=== PATIENT | female | born 1960 | race Caucasian/White ===

== ENCOUNTER 2024-01-26 23:36 | Inpatient (IN) | payer OTHER, SELFPAY ==
--- NOTE | ~2024-01-26 | US_ITS ---
EXAMINATION: US retroperitoneal duplex ltd DATE: 01/27/2024 17:10 INDICATION: Hypertension. TECHNIQUE: Multiple grayscale, color Doppler, and pulsed Doppler images of the kidneys and renal talat georgette were obtained. COMPARISON: None. FINDINGS: The aorta peak systolic velocity is 93 cm/s. Peak systolic velocities are less than 180 cm/s in both renal arteries. IMPRESSION: 1. No Doppler evidence of renal artery stenosis. Reviewed, dictated and finalized at location A.
--- NOTE | 2024-01-26 19:32 | ADMGEN ---
This patient, Katlin Tavera, was admitted to IMU Room 200-01. Patient/family oriented to hospital policies and general routines including ID bracelet, bed and alarms, visiting hours, pain management, procedures, bathroom and other care routines, personal items, smoking policy, room service/diet, and visiting hours. Information on how to activate the Rapid Response Team has been discussed. Patient/Family are encouraged to report perceived risks to care and to ask questions if they do not understand what they are told or what they should do.
[2024-01-26 19:34] VITALS: PULSE 81
[2024-01-26 19:36] VITALS: BMI 23.8
[2024-01-26 19:59] VITALS: BP 161/76; PULSE 76; RESP 16; TEMP 36.2; O2SAT 99
[2024-01-26 20:00] VITALS: PULSE 78; O2SAT 99
--- NOTE | 2024-01-26 20:11 | PM.IMHP ---
H&P: HPI History of Present Illness Date/Time: 01/26/24 20:11 Chief Complaint: hypertension Narrative: This is a 63-year-old female with past medical history significant for recently diagnosed hypertension came as a direct admission from outside facility she presented there after a home blood pressure reading was systolic blood pressure of 230. Patient denies any lightheadedness, dizziness, syncope or near syncope, no headaches no blurry vision no shortness of breath no chest pain no PND no orthopnea no abdominal pain no nausea no vomiting no leg swelling no pedal swelling no ankle swelling. [facility] SHE WAS FOUND TO HAVE ELEVATED BLOOD PRESSURE AND WAS TOLD TO CONTINUE MONITORING AT HOME. PATIENT IS BEEN ADMITTED FOR FURTHER EVALUATION MANAGEMENT AND TREATMENT. Review of Systems Review of Systems: HIGH BLOOD PRESSURE ON HOME READING Constitutional: Constitutional: Denies chills, Denies fatigue, Denies fever(s), Denies frequent falls, Denies headache(s), Denies malaise, Denies night sweats and Denies poor appetite Eyes: Eyes: Denies change in vision ENT: Denies dysphagia, Denies vertigo, Denies dizziness and Denies odynophagia Cardiovascular: Cardiovascular: Denies chest pain, Denies syncope, Denies radiating jaw, neck or arm pain and Denies palpitations Respiratory: Respiratory: Denies chest congestion, Denies cough, Denies dyspnea and Denies wheezing Gastrointestinal: Gastrointestinal: Denies abdominal pain, Denies dyspepsia, Denies heartburn, Denies nausea and Denies vomiting Genitourinary: Genitourinary: Denies dysuria Musculoskeletal: Musculoskeletal: Denies myalgias Integumentary/Breasts: Skin/Breast: Denies rash Neurologic: Denies vertigo, Denies dizziness, Denies focal weakness and Denies Sensory deficit (Neuro) Psychiatric: Psychiatric: Reports no additional psychiatric complaints and Reports as per HPI Endocrine: Endocrine: Denies cold intolerance, Denies heat intolerance, Denies polyphagia, Denies polydipsia and Denies polyuria Hematologic/Lymphatic: Hematologic/Lymphatic: Reports no additional hematologic/lymphatic complaints and Reports as per HPI Allergic/Immunologic: Allergic/Immunologic: Reports no additional allergic/immunologic complaints and Reports as per HPI [facility] Family History Family History (Updated 01/26/24 @ 19:44 by Manjula Pablo RN) Sibling Pacemaker Sibling Cerebrovascular accident Social History Social History Smoking status: Never smoker Second hand tobacco smoke exposure: No Alcohol intake: never Substance use: never Do You Feel Safe in your Home?: Yes Lack of Transportation: No Lack of Food: Never True Current Housing: I Have Housing Concerned About Future Housing: No Difficulty Paying Gas/Electric Bills: No Difficulty Paying for Meds: No Currently Unemployed: No Education: Decline to Answer Difficulty w/ Childcare or Family Care: No Spiritual care concerns: No Meds Home Medications and Allergies Home Medications Medication Instructions Recorded Confirmed Type acetaminophen 500 mg tablet 1,000 mg PO Q6H PRN Pain 01/26/24 01/26/24 History clindamycin HCl 300 mg capsule 300 mg PO QID 01/26/24 01/26/24 History olmesartan 20 mg tablet 20 mg PO DAILY 01/26/24 01/26/24 History Allergies Allergy/AdvReac Type Severity Reaction Status Date / Time Penicillins Allergy Unknown Verified 01/26/24 19:48 Vital Signs Vital Signs - 24 hr 01/26/24 19:59 01/26/24 20:00 01/26/24 20:00 Temperature 97.2 F L Pulse Rate 76 78 Respiratory Rate 16 Blood Pressure 161/76 H Pulse Oximetry 99 99 Oxygen Delivery Room Air Exam Narrative: PATIENT IS LAYING IN BED Const: General: comfortable, no acute distress, well developed, alert, awake and average body habitus Nutritional Appearance: average body habitus Orientation/consciousness: patient oriented x3 Other: WELL-
[2024-01-26 22:00] VITALS: PULSE 84
--- NOTE | 2024-01-26 23:38 | ECG_ITS ---
Test Date: 2024-01-27 10:03:47 Measurements Intervals [place] Rate: 80 P: 9 VA: 161 QRS: -19 QRSD: 97 T: 40 QT: 400 QTc: 464 Interpretive Statements SINUS RHYTHM MINIMAL VOLTAGE CRITERIA FOR LVH, CONSIDER NORMAL VARIANT [MEETS CRITERIA IN ONE OF: R(aVL), S(V1), R(V5), R(V5/V6)+S(V1)] SEPTAL MYOCARDIAL INFARCTION [40+ ms Q WAVE IN V1/V2], PROBABLY OLD WARNING: DATA QUALITY MAY AFFECT INTERPRETATION No previous ECG available for comparison Electronically Signed On 01-27-2024 13:37:16 CDT by Marysol Bean M.D.
[2024-01-26 23:44] VITALS: BP 163/75; PULSE 85; RESP 15; TEMP 36.1; O2SAT 98
[2024-01-27] VITALS (13 sets, daily range): BP systolic 164–206; BP diastolic 72–88; PULSE 75–110; RESP 15–20; TEMP 36.1–36.8; O2SAT 97–99
--- NOTE | 2024-01-27 | ECHO_ITS ---
Patient Info Name: Katlin Tavera Age: 63 years : 1960 Gender: Female Ht: 63 in Wt: 134 lbs BSA: 1.65 m2 HR: 85 bpm BP: 168 / 72 mmHg Heart Rhythm: Sinus Rhythm Technical Quality: Fair Exam Date: 01/27/2024 9:23 AM Exam Location: Echo Lab Patient Status: Outpatient Admit Date: 01/26/2024 Staff Ordering Physician: Kash Quintero MD Commercial Insulator: Naga Marquez RDCS Attending Provider: Mahamed Miranda MD Referring Physician: Leon HOWE; Exam Type: CA echo doppler color flow Study Info Indications I11.0 - Hypertensive heart disease with heart failure Complete two-dimensional, color flow and Doppler transthoracic echocardiogram is performed. Summary 1. Left ventricular chamber dimension is normal. 2. Left ventricular systolic function is at lower limits of normal, estimated at 50-55%. 3. There is moderate concentric increased left ventricular wall thickness. 4. The left ventricular diastolic function is grade I diastolic dysfunction. 5. Right ventricular systolic function is normal. 6. Left atrial chamber dimension is moderately enlarged. 7. No significant valvular disease. Left Ventricle Left ventricular chamber dimension is normal. Left ventricular systolic function is at lower limits of normal, estimated at 50-55%. There is moderate concentric increased left ventricular wall thickness. The left ventricular diastolic function is grade I diastolic dysfunction. Right Ventricle Right ventricular chamber dimension is normal. Right ventricular systolic function is normal. Left Atria Left atrial chamber dimension is moderately enlarged. Right Atria Right atrial chamber dimension is normal. Atrial Septum Intact interatrial septum visualized by color flow imaging. Aortic Valve The aortic valve is trileaflet. There is mild aortic valve sclerosis. There is no aortic valve stenosis. There is no aortic valve regurgitation. Pulmonic Valve The pulmonic valve is not well visualized. There is no pulmonic regurgitation. Mitral Valve There is trace mitral valve regurgitation. Tricuspid Valve There is trace tricuspid valve regurgitation. Pericardium/Pleural There is no pericardial effusion. Inferior Vena Cava Normal inferior vena cava with >50% collapse upon inspiration consistent with normal right atrial pressure, 3 mmHg. Aorta The aortic root size at the sinus of Valsalva is normal. Left Ventricular Outflow Tract Name Value Normal LVOT 2D LVOT Diameter 2.0 cm LVOT Doppler LVOT Peak Gradient 6 mmHg LVOT Mean Gradient 3 mmHg LVOT VTI 23 cm LVOT VTI/AV VTI Ratio 0.8 LVOT Stroke Volume 73 ml LVOT CO 5.9 l/min LVOT CI 3.5 l/min/m2 Pulmonic Valve Name Value Normal RVOT Doppler RVOT Peak Gradient
[2024-01-27 00:27] LABS: Appearance Urine Clear (Clear); Bacteria Urine None Seen /hpf; Bilirubin Urine Negative (Negative); Blood Urine 2+ (Negative); Color Urine Yellow (Yellow); Glucose Urine UA 2+ mg/dL (Negative); Ketones Urine Negative (Negative); Leukocyte Esterase Ur Negative LEU/UL (Negative); Nitrate Urine Negative (Negative); Protein Urine 3+ mg/dL (Negative); RBC Urine 21-50 /hpf (0-2); Specific Grav Ur 1.019 (1.001-1.035); Squamous Epithelial Cell Urine Occasional /hpf (Few); Urobilinogen Urine 0.2 mg/dL (<2.0); WBC Urine 0-5 /hpf (0-3); pH Urine 5.5 (5.0-9.0)
[2024-01-27 01:07] LABS: Add Urine Microscopic? YES
[2024-01-27 04:33] LABS: Basophils Percent Auto 0.2 % (0.2-1.2); Eosinophils Absolute Auto 0.1 K/mm3 (0-0.3); Eosinophils Percent Auto 0.8 % (0-4.4); Hematocrit 36.1 % (37.0-47.0); Hemoglobin 11.8 g/dL (12.0-15.0); Immature Granulocyte Absolute 0.02 K/mm3 (0.00-0.031); Immature Granulocyte Percent A 0.2 % (0-0.5); Lymphocytes Absolute Auto 2.25 K/mm3 (0.9-3.2); Lymphocytes Percent Auto 25.2 % (18.3-44.2); Mean Corpuscular HGB Conc 32.7 g/dl (32-36); Mean Corpuscular Hemoglobin 27.2 pg (26-34); Mean Corpuscular Volume 83.2 fl (80-100); Mean Platelet Volume 10.9 fl (7.4-10.4); Monocytes Percent Auto 10.9 % (2.6-8.5); Neutrophils Absolute Auto 5.6 K/mm3 (1.3-6.7); Neutrophils Percent Auto 62.7 % (45.5-73.1); Platelet Count Result 597 k/mm3 (150-375); Red Blood Count 4.34 M/mm3 (4.2-5.4); Red Cell Distribution Width 14.7 % (11.5-14.5); White Blood Count 8.9 K/mm3 (4.5-10.0)
[2024-01-27 04:50] LABS: Anion Gap 7 mmol/L (4-12); Blood Urea Nitrogen 20 mg/dL (7-17); Calcium 9.1 mg/dL (8.4-10.2); Carbon Dioxide 30 mmol/L (22-30); Chloride 98 mmol/L (98-107); Estimated CRCL calculation 52 ml/min; Estimated Glomerular Filt Rate > 60; Glucose 239 mg/dL (65-110); Magnesium 2.1 mg/dL (1.6-2.3); Phosphorus 4.2 mg/dL (2.5-4.5); Sodium 135 mmol/L (137-145)
[2024-01-27] MEDS: OLMESARTAN MEDOXOMIL 20 MG TABLET PO (08:13)
[2024-01-27] MEDS: CLINDAMYCIN HCL 150 MG CAP 300 MG PO ×2 (08:13→12:02)
--- NOTE | 2024-01-27 10:31 | PM.IMPN ---
Progress Note: A&P Assessment and Plan (1) Asymptomatic hypertensive urgency: Code(s): I16.0 - Hypertensive urgency Status: Acute Plan This is a 63-year-old female with past medical history significant for recently diagnosed hypertension came as a direct admission from outside facility she presented there after a home blood pressure reading was systolic blood pressure of 230. Patient denies any lightheadedness, dizziness, syncope or near syncope, no headaches no blurry vision no shortness of breath no chest pain no PND no orthopnea no abdominal pain no nausea no vomiting no leg swelling no pedal swelling no ankle swelling. Asymptomatic hypertensive urgency: Code(s): I16.0 - Hypertensive urgency Status: Acute Assessment and Plan: Patient received olmesartan 20 mg daily p.o. Blood pressure is not controlled Add hydrochlorothiazide 25 mg daily p.o., amlodipine 10 mg daily p.o. Hydralazine IV p.r.n. 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 Patient denies headache, vision change, chest pain, shortness of breath, abdomen pain, nausea vomiting. Patient has a chronic ulcer of right lower limb treated, and patient was prescribed clindamycin on Wednesday per [facility]. Patient noticed active drainage today, have worsening swelling Exam Narrative: GENERAL: Pleasant, in no acute distress. Well-nourished. - EYES: EOMI. Anicteric. - HENT: Moist mucous membranes. - LUNGS: Clear to auscultation bilaterally, no wheezing, rhonchi, or rales. - CARDIOVASCULAR: Regular rate and rhythm. No murmur. No JVD. - ABDOMEN: Soft, non-tender and non-distended. No palpable masses. - EXTREMITIES: No edema. Peripheral pulses 2+. Non-tender. - NEUROLOGIC: No focal neurological deficits. CN II-XII grossly intact. - PSYCHIATRIC: Awake, Alert and oriented x 3. Appropriate mood and affect. - SKIN: Multiple ulcer of right lower extremity, erythema tender swelling of the skin around the ulcers - LYMPH: No cervical lymphadenopathy. Objective Data Vital Signs Vital Signs: Vital Signs - 24 hr 01/26/24 19:59 01/26/24 20:00 01/26/24 20:00 Temperature 97.2 F L Pulse Rate 76 78 Respiratory Rate 16 Blood Pressure 161/76 H Pulse Oximetry 99 99 Oxygen Delivery Room Air 01/26/24 19:34 01/26/24 23:44 01/26/24 22:00 Temperature 97 F L Pulse Rate 81 85 84 Respiratory Rate 15 Blood Pressure 163/75 H Pulse Oximetry 98 Oxygen Delivery 01/27/24 00:00 01/27/24 00:00 01/27/24 04:00 Temperature 97.6 F Pulse Rate 85 77 Respiratory Rate 15 Blood Pressure 168/72 H Pulse Oximetry 98 Oxygen Delivery Room Air 01/27/24 04:00 01/27/24 04:00 01/27/24 02:00 Temperature Pulse Rate 75 77 Respiratory Rate Blood Pressure Pulse Oximetry Oxygen Delivery Room Air 01/27/24 07:39 01/27/24 08:00 01/27/24 08:00 Temperature 97.1 F L Pulse Rate 85 82 Respiratory Rate 20 Blood Pressure 192/88 H Pulse Oximetry 99 Oxygen Delivery Room Air Intake/Output Intake/Output: Intake & Output 01/24/24 01/25/24 01/26/24 01/27/24 23:59 23:59 23:59 23:59 Intake T
[2024-01-27 11:15] LABS: Immature Reticulocyte Fraction 9.3 % (3.0-15.9); Reticulocyte Hemoglobin Conten 31.9 pg (28.2-36.6); Reticulocyte Percent 1.69 % (0.7-4.3); Reticulocytes Absolute 0.08 10^6/uL (0.02-0.10)
--- NOTE | 2024-01-27 11:49 | PM.CNGS ---
Assessment and Plan Assessment and plan (1) Abscess of right leg: Code(s): L02.415 - Cutaneous abscess of right lower limb Status: Acute Assessment and Plan: The patient is here for hypertensive urgency but also presents with a right lower leg abscess. She had repetitive trauma to this area about a month ago and has since developed a soft tissue infection. She has been on oral antibiotics for about 1.5 weeks as an outpatient through an urgent care. It appears she has developed two fluctuant necrotic wounds over the abscess that definitely connect. I discussed the case with Dr. Andrade. We would recommend proceeding with bedside incision and drainage of right lower leg abscess with local anesthetic today. Description of the procedure, risks, benefits, alternatives, and expected outcomes/wound care were discussed with the patient in detail. Will consult the wound care nurses for possible wound vac therapy as she will likely have a large open wound following the I&D. She is currently on oral clindamycin for antibiotics. (2) Asymptomatic hypertensive urgency: Code(s): I16.0 - Hypertensive urgency Status: Acute Assessment and Plan: Patient with untreated hypertension for the past 8 years and presented to an [facility] facility with hypertensive urgency. Management per primary service. (3) Hyperglycemia: Code(s): R73.9 - Hyperglycemia, unspecified Status: Acute Assessment and Plan: Glucose 239 on admission. Suspicion for undiagnosed diabetes. Hgb A1C pending. This is likely contributing to her skin infection. (4) Anemia: Code(s): D64.9 - Anemia, unspecified Status: Acute Assessment and Plan: Hgb 11.9 on admission and platelets almost 600,000. Hematology was consulted by primary service. Plan I have discussed the patient's case and plan of care with Dr. Andrade. Thank you for allowing us to see the patient in consultation and we will continue to follow along with you. History of Present Illness Consult details Consult date: 01/27/24 Reason for consult: other (Right leg tunneling wound) Requesting physician: Mahamed Miranda MD Narrative: This is a 63-year-old female who we have been asked to see in surgical consultation for a right leg tunneling wound. She was directly admitted to [facility] yesterday from [place] ED for hypertensive crisis. She reports a history of hypertension and was previously on oral medication through primary care provider, but fell out of follow-up due to job changes and lack of insurance. Therefore, she has not been seen by a primary care physician in 8 years and has been off of her medications since. She has been dealing with a right lower leg skin infection for the past 2 weeks and was seen in urgent care who prescribed her antihypertensives and instructed her to take her blood pressure at home. She was taking her blood pressure at home yesterday and her systolic blood pressure was 230, therefore she went to [facility] for evaluation. She has been asymptomatic and denies any headaches, lightheadedness, vision changes, or any other complaints at this time. Her blood pressure this morning is 192/88. She was found to have a right lower extremity wound and our service has been consulted. In regards to the wound, she reports hitting her leg on a wheelchair that she has been getting in and out of her vehicle recently for her mother. The wheelchair continued to hit her lower lateral right leg and this area became sore. She noticed a lump in this area that looked bruised initially. Over a week and a half ago, she began to notice some redness and tenderness in this area, which prompted her to go to an urgent care. They started her on an oral antibiotic and recommended follow-up. She continued to have redness, although slightly improved, and they switched her antibiotic to clindamycin. She has been taking this medication and there is some improvement in th
[2024-01-27 11:58] LABS: Glucose Point of Care 314 mg/dl (65-105)
[2024-01-27] MEDS: amLODIPine BESYLATE 5 MG TABLET 10 MG PO (12:02)
[2024-01-27] MEDS: ACIDOPHILUS/BULGARICUS CHEWABLE TABLET 1 TABLET PO ×3 (12:02→21:10)
[2024-01-27] MEDS: hydroCHLOROthiazide 25 MG TABLET PO (12:02)
[2024-01-27] MEDS: INSULIN ASPART (*BKC) 100 UNITS/ML SUB-Q ×2 (12:03→21:07)
[2024-01-27 12:04] LABS: Iron 100 ug/dL (37-170)
[2024-01-27 12:14] LABS: Percent Iron Saturation 38 % (20-50)
[2024-01-27 12:20] LABS: Hemoglobin A1C 11.2 % (<5.7)
--- NOTE | 2024-01-27 14:37 | P.OP_ITS ---
Procedure Note - Detailed Date of Procedure 01/27/24 Pre-op Diagnosis Right lower lateral leg abscess Post-op Diagnosis Same Procedure Performed Incision and drainage right lower leg abscess, excisional debridement necrotic right lower leg wound including skin and subcutaneous tissue measuring 4 cm x 2 cm Surgeon Christina Curry, LINEN FOLDER Steersman Georg[place], [employer] team member Anesthesia Local (1% lidocaine with epinephrine) Indications This is a 63 year old woman who was directly admitted from [facility] to [place] for hypertensive urgency and was also found to have a right lower leg abscess. Decision was made to proceed with incision and drainage right lower leg abscess. Findings Right lower lateral leg abscess with two small necrotic wounds that connected over the fluctuant area of the abscess. Description of Procedure The patient was placed in the left lateral position in her hospital bed with the right leg propped up on a folded blanket and drapes laid beneath her leg. The site of the abscess for required I&D was identified. Following this, the area was prepped with iodine and draped in usual sterile fashion. Then, local anesthetic was infiltrated over the abscess formation and in the area of the skin bridge between the two wounds. After allowing the local anesthetic to work, I used a #15 blade scalpel for sharp debridement of the soft yellow necrotic skin over the more proximal wound overlying the abscess. I carried down debridement through skin and into subcutaneous tissue. Immediate flow of purulent drainage was noted. I then moved to the more distal wound and again sharply debrided the soft necrotic tissue from this wound that extended through the skin and into subcutaneous tissue. I then used forceps to probe the proximal wound, which entered into the abscess cavity and connected to the more distal open wound. I then used the scalpel to make a direct incision over the forceps to open up the skin bridge that was between the two open wounds. This allowed the abscess cavity to be opened and adequately drained. I then probed the abscess cavity to break up all loculations and irrigated the wound with normal saline. The wound and area of debridement was measured at 4 cm x 2 cm x 2 cm. The cavity does track 3 cm cephalad at the 12 o'clock position. The abscess involves the skin and subcutaneous tissue, and the base of the wound appears to extend to fascia. The abscess cavity was inspected and no residual purulent drainage or any bleeding noted. I then applied a wet to dry dressing until the wound care nurse is able to come back to apply a wound vac. The patient tolerated the procedure well. Estimated Blood Loss 0 Drains No Packing Yes (saline soaked gauze for wet to dry dressing) Complications No immediate complications Condition Stable Disposition No change
[2024-01-27] MEDS: LIDO 1%/EPINEPHRINE 1:100,000 20 ML VIAL 5 ML INFILTRATE (14:52)
[2024-01-27] MEDS: ceFAZolin 2 GM/D5W 50 ML 2 GM/50 ML BAG IVPB ×2 (16:28→23:30)
[2024-01-27] MEDS: VANCOMYCIN 1,000 MG/NS 250 ML 1,000 MG/250 ML BAG 250 MG IVPB (16:35)
[2024-01-27 16:37] LABS: Glucose Point of Care 151 mg/dl (65-105)
[2024-01-27 20:08] LABS: Glucose Point of Care 251 mg/dl (65-105)
--- NOTE | 2024-01-27 21:28 | PC.NURSE ---
This patient is being transferred to [facility] via wheelchair. Report was called to Jami SANFORD. All belongings sent with patient, and she is in stable condition.
[2024-01-28] VITALS (10 sets, daily range): BP systolic 151–189; BP diastolic 69–91; PULSE 72–101; RESP 16–20; TEMP 36.2–36.7; O2SAT 98–99
[2024-01-28 04:42] LABS: Estimated CRCL calculation 52 ml/min; Estimated Glomerular Filt Rate > 60
[2024-01-28 05:57] LABS: CRP 0.6 mg/dL (<1.0)
[2024-01-28 06:01] LABS: Basophils Percent Auto 0.2 % (0.2-1.2); Eosinophils Absolute Auto 0.1 K/mm3 (0-0.3); Eosinophils Percent Auto 0.7 % (0-4.4); Hematocrit 38.5 % (37.0-47.0); Hemoglobin 12.4 g/dL (12.0-15.0); Immature Granulocyte Absolute 0.04 K/mm3 (0.00-0.031); Immature Granulocyte Percent A 0.4 % (0-0.5); Lymphocytes Absolute Auto 2.11 K/mm3 (0.9-3.2); Lymphocytes Percent Auto 19.3 % (18.3-44.2); Mean Corpuscular HGB Conc 32.2 g/dl (32-36); Mean Corpuscular Hemoglobin 26.8 pg (26-34); Mean Corpuscular Volume 83.2 fl (80-100); Mean Platelet Volume 11.1 fl (7.4-10.4); Monocytes Percent Auto 8.9 % (2.6-8.5); Neutrophils Absolute Auto 7.7 K/mm3 (1.3-6.7); Neutrophils Percent Auto 70.5 % (45.5-73.1); Platelet Count Result 607 k/mm3 (150-375); Red Blood Count 4.63 M/mm3 (4.2-5.4); Red Cell Distribution Width 14.9 % (11.5-14.5); White Blood Count 10.9 K/mm3 (4.5-10.0)
[2024-01-28 07:01] LABS: Folic Acid 7.5 ng/mL (2.76->20)
[2024-01-28 08:00] LABS: Glucose Point of Care 235 mg/dl (65-105)
[2024-01-28] MEDS: OLMESARTAN MEDOXOMIL 20 MG TABLET PO ×2 (08:02→16:49)
[2024-01-28] MEDS: amLODIPine BESYLATE 5 MG TABLET 10 MG PO (08:02)
[2024-01-28] MEDS: INSULIN ASPART (*BKC) 100 UNITS/ML SUB-Q ×4 (08:02→16:52)
[2024-01-28] MEDS: hydroCHLOROthiazide 25 MG TABLET PO (08:02)
[2024-01-28] MEDS: ACIDOPHILUS/BULGARICUS CHEWABLE TABLET 1 TABLET PO ×4 (08:03→20:37)
[2024-01-28 08:26] LABS: Erythrocyte Sedimentation Rate 15 mm/hr (0-20)
[2024-01-28 08:50] LABS: Iron 92 ug/dL (37-170)
[2024-01-28 09:02] LABS: Percent Iron Saturation 33 % (20-50)
[2024-01-28] MEDS: ceFAZolin 2 GM/D5W 50 ML 2 GM/50 ML BAG IVPB ×3 (09:50→23:46)
--- NOTE | 2024-01-28 10:05 | PDONCCN ---
HPI - Date of Consult Date/Time: 01/28/24 14:47 <Kunal Washington - 01/28/24 14:50> 01/28/24 10:05 <Deepa Blevins - 01/28/24 10:07> Requesting Physician: Mahamed Miranda MD <Kunal Washington - 01/28/24 14:50> Mahamed Miranda MD <Deepa Blevins - 01/28/24 10:07> Primary Care Provider: SCIENTIFIC DIRECTOR PHYSICIAN <Kunal Washington - 01/28/24 14:50> SCIENTIFIC DIRECTOR PHYSICIAN <Deepa Blevins - 01/28/24 10:07> - Consult Narrative Reason for consult: Thrombocytosis, anemia, <Deepa Blevins 01/28/24 10:07> Narrative: Katlin Tavera is a 63 year old female <Kunal Washington - 01/28/24 14:50> Katlin Tavera is a 63 year old female with a new diagnoses of hypertension and diabetes who was admitted to the hospital for hypertension management. She denies any headaches, blurry vision, dizziness, when blood pressures were elevated to 230s. She was also found to have a RLE wound consistent with cellulitis. She states she has hit her leg multiple times with her mothers wheelchair and it has created a wound. She also reports a past history of JOHAN when she was going through menopause and was on iron once daily at that time. She denies any active bleeding at this time. States her last colonoscopy was ~13 yrs ago. She eats a regular diet. Has diarrhea x1 weekly. She has no history of elevated plt count. Labs today are notable for WBC 10.9, Hgb 12.4, Hct 38.5, Plt 607,000. B12 636, Iron 92 % sat 33 Ferritin 184 <Deepa Blevins 01/28/24 13:01> Review of Systems - Review of Systems All systems reviewed & are unremarkable except as noted in HPI and bel <Deepa Blevins 01/28/24 10:12> - Neurologic Denies vertigo, Denies syncope, Denies frequent falls, Denies headache(s), Denies focal weakness, Denies sensory deficit <Deepa Blevins 01/28/24 10:07> [facility] Medical History: Medical History (Last Reviewed 01/27/24 @ 11:56 by REBECA Denton) Hypertension <PadminiKunal M. - 01/28/24 14:50> Medical History (Last Reviewed 01/27/24 @ 11:56 by REBECA Denton) Hypertension <TomDeepa foss - 01/28/24 10:07> Surgical History: Surgical History (Last Reviewed 01/27/24 @ 11:56 by REBECA Denton) No pertinent past surgical history <Kunal Washington M. - 01/28/24 14:50> Surgical History (Last Reviewed 01/27/24 @ 11:56 by REBECA Denton) No pertinent past surgical history <TomDeepa foss - 01/28/24 10:07> Family History: Family History (Last Reviewed 01/27/24 @ 11:56 by REBECA Denton) Sibling Pacemaker Sibling Cerebrovascular accident <Kunal Washington M. - 01/28/24 14:50> Family History (Last Reviewed 01/27/24 @ 11:56 by REBECA Denton) Sibling Pacemaker Sibling Cerebrovascular accident <Deepa Blevins - 01/28/24 10:07> - Social History Social History: Social History (Last Reviewed 01/27/24 @ 11:56 by REBECA Denton) Alcohol Use: Alcohol intake: never Substance Use: Substance use: never Others: Spiritual care concerns: No Smoking Status: Smoking status: Never smoker Second hand tobacco smoke exposure: No Social Determinants of Health: Do You Feel Safe in your Home?: Yes Has the Lack of Transportation Kept You From Medical Appointments or From Getting Medications?: No Within the Past 12 Months, Were You Worried Whether Your Food Would Run Out Before You Got Money to Buy More?: Never True What is Your Housing Situation Today?: I Have Housing Are You Worried That in the Next 2 Months, You May Not Have Your Own Housing to Live In?: No Do You Have Trouble Paying Your Heating Or Electricity Bill?: No Do You Have Trouble Paying For Medicines?: No Are You Currently Unemployed and Looking for Work?: No Highest Level of Education Completed: Decline to Answer Do You Have Trouble Wi
--- NOTE | 2024-01-28 10:46 | PM.PNGS ---
Progress Note: A&P Assessment and Plan (1) Abscess of right leg: Code(s): L02.415 - Cutaneous abscess of right lower limb Status: Acute Assessment and Plan: Debridement and drainage yesterday very effective. Wound has some exudate at the base but otherwise looks good. Wound VAC to be placed by wound care nurse specialists. Patient will need a VAC at home. Will not be able to be discharged until at least Wednesday due to this. Will get process started. Subjective Subjective Date/Time Seen: 01/28/24 10:46 Post Op day: 1 Patient reports: no new complaints, feels better, pain is less and afebrile Review of Systems Review of Systems: All systems reviewed & are unremarkable except as noted in HPI and below (HPI) Exam Const: General: comfortable and no acute distress Orientation/consciousness: patient oriented x3 Extrem: General: no calf tenderness and no edema Right lower extremity: lower leg (Lateral wound looks good. Exudate at base but otherwise pink healthy) Details: tenderness, localized swelling and no edema Objective Data Vital Signs Vital Signs: Vital Signs - 24 hr 01/27/24 11:58 01/27/24 14:00 01/27/24 12:00 Temperature 36.1 C L Pulse Rate 82 77 Respiratory Rate 20 Blood Pressure 206/88 H Pulse Oximetry 98 Oxygen Delivery Room Air 01/27/24 12:00 01/27/24 16:00 01/27/24 16:00 Temperature 36.1 C L Pulse Rate 81 80 79 Respiratory Rate 16 Blood Pressure 206/87 H Pulse Oximetry 98 Oxygen Delivery 01/27/24 18:00 01/27/24 18:51 01/27/24 20:00 Temperature 36.8 C Pulse Rate 99 85 110 H Respiratory Rate 20 Blood Pressure 164/79 H Pulse Oximetry 97 Oxygen Delivery 01/28/24 00:00 01/28/24 00:00 01/28/24 04:00 Temperature 36.2 C L Pulse Rate 83 101 H 72 Respiratory Rate 20 Blood Pressure 153/90 H Pulse Oximetry 99 Oxygen Delivery 01/28/24 06:00 01/28/24 08:07 Temperature 36.3 C L Pulse Rate 83 Respiratory Rate 20 Blood Pressure 160/90 H Pulse Oximetry 98 Oxygen Delivery Room Air Intake/Output Intake/Output: Intake & Output 01/25/24 01/26/24 01/27/24 01/28/24 23:59 23:59 23:59 23:59 Intake Total 690 790 Output Total 1470 Balance -780 790 Meds/Results Medications: Active Medications Generic Name Dose Route Start Last Admin Trade Name Freq PRN Reason Stop Dose Admin Acetaminophen 1,000 mg 01/26/24 23:35 Acetaminophen 500 Mg Tablet PO Q6H PRN Pain Al Hydrox/Mg Hydrox/Simethicone 30 ml 01/26/24 23:35 Mag Hydrox/Al Hydrox/Simeth 30 Ml Udc PO QID PRN Dyspepsia Amlodipine Besylate 10 mg 01/27/24 10:50 01/28/24 08:02 Amlodipine Besylate 5 Mg Tablet PO 10 mg QAM RACQUEL Administration Aspirin 81 mg 01/29/24 08:00 Aspirin 81 Mg Chewable Tablet PO DAILY@0800 RACQUEL Dextrose 12.5 gm 01/27/24 10:51 Dextrose 50% 25 Gm/50 Ml Syringe IV PUSH PRN PRN Hypoglycemia Protocol Glucagon 1 mg 01/27/24 10:51 Glucagon For Inj 1 Mg Vial IM PRN PRN Hypoglycemia Protocol Glucose 15 gm 01/27/24 10:51 Glucose Oral Gel 15 Gm Of Glucse In 37.5 Gm Tube PO PRN PRN Hypoglycemia Protocol Hydrochlorothiazide 25 mg 01/27/24 10:50 01/28/24 08:02 Hydrochlorothiazide 25 Mg Tablet PO 25 mg QAM RACQUEL Administration Dextrose 1,000 mls @ 100 mls/hr 01/27/24 10:51 Dextrose 5% 1,000 Ml IVPB PRN PRN Hypoglycemia Protocol Cefazolin Sodium 2 gm in 50 mls @ 100 mls/hr 01/27/24 16:00 01/28/24 09:50 Ancef 2 Gm/D5w 50 Ml IVPB 100 mls/hr Q8H RACQUEL Administration Vancomycin HCl 1,000 mg in 250 mls @ 250 mls/hr 01/27/24 17:00 01/27/24 16:35 Vancomycin 1,000 Mg/Ns 250 Ml IVPB 250 mls/hr Q24H RACQUEL Administration Insulin Aspart 3 - 6 units 01/27/24 12:00 01/28/24 08:02 Insulin Aspart (*Bkc) 100 Units/Ml SUB-Q 3 units TIDWM RACQUEL Administration Protocol Insulin A
[2024-01-28 10:48] LABS: IFOB Positive Control Positive; Immunochemical Fecal Occult Bl Negative (N)
[2024-01-28 12:02] LABS: Glucose Point of Care 289 mg/dl (65-105)
--- NOTE | 2024-01-28 15:01 | PM.IMPN ---
Progress Note: A&P Assessment and Plan (1) Asymptomatic hypertensive urgency: Code(s): I16.0 - Hypertensive urgency Status: Acute (2) Abscess of right leg: Code(s): L02.415 - Cutaneous abscess of right lower limb Status: Acute (3) Hyperglycemia: Code(s): R73.9 - Hyperglycemia, unspecified Status: Acute Plan This is a 63-year-old female with past medical history significant for recently diagnosed hypertension came as a direct admission from outside facility she presented there after a home blood pressure reading was systolic blood pressure of 230. Patient denies any lightheadedness, dizziness, syncope or near syncope, no headaches no blurry vision no shortness of breath no chest pain no PND no orthopnea no abdominal pain no nausea no vomiting no leg swelling no pedal swelling no ankle swelling. #Asymptomatic hypertensive urgency: Patient received olmesartan 20 mg daily p.o. Blood pressure is not controlled Add hydrochlorothiazide 25 mg daily p.o., amlodipine 10 mg daily p.o. Hydralazine IV p.r.n. with parameters renal Doppler with no evidence of renal artery stenosis Echo with EF 50-55% moderate concentric left ventricle wall thickness grade 1 diastolic dysfunction. No significant valvar disease. 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 Placed a wound VAC this a.m.. Denies any chest pain or shortness of breath. Review of Systems Review of Systems: All systems reviewed & are unremarkable except as noted in HPI and below Exam Narrative: GENERAL: Pleasant, in no acute distress. Well-nourished. - EYES: EOMI. Anicteric. - HENT: Moist mucous membranes. - LUNGS: Clear to auscultation bilaterally, no wheezing, rhonchi, or rales. - CARDIOVASCULAR: Regular rate and rhythm. No murmur. No JVD. - ABDOMEN: Soft, non-tender and non-distended. No palpable masses. - EXTREMITIES: No edema. Peripheral pulses 2+. Non-tender. - NEUROLOGIC: No focal neurological deficits. CN II-XII grossly intact. - PSYCHIATRIC: Awake, Alert and oriented x 3. Appropriate mood and affect. - SKIN: Right lower extremity with wound VAC in place - LYMPH: No cervical lymphadenopathy. Objective Data Vital Signs Vital Signs: Vital Signs - 24 hr 01/27/24 16:00 01/27/24 16:00 01/27/24 18:00 Temperature 97.0 F L Pulse Rate 80 79 99 Respiratory Rate 16 Blood Pressure 206/87 H Pulse Oximetry 98 Oxygen Delivery 01/27/24 18:51 01/27/24 20:00 01/28/24 00:00 Temperature 98.3 F 97.2 F L Pulse Rate 85 110 H 83 Respiratory Rate 20 20 Blood Pressure 164/79 H 153/90 H Pulse Oximetry 97 99 Oxygen Delivery 01/28/24 00:00 01/28/24 04:00 01/28/24 06:00 Temperature 97.3 F L Pulse Rate 101 H 72 83 Respiratory Rate 20 Blood Pressure 160/90 H Pulse Oximetry 98 Oxygen Delivery 01/28/24 08:07 01/28/24 12:00 01/28/24 08:05 Temperature 98.1 F Pulse Rate 94 86 Respiratory Rate 18 Blood Pressure 189/89 H Pulse Oximetry 99 Oxygen Delivery Room Air 01/28/24 12:05 Temperature Pulse Rate 98 Respiratory Rate Blood Pressure Pulse Oximetry Oxygen Delivery Intake/Output Intake/Output: Intake & Outp
[2024-01-28] MEDS: VANCOMYCIN 1,000 MG/NS 250 ML 1,000 MG/250 ML BAG 250 MG IVPB (16:51)
[2024-01-28 17:01] LABS: Glucose Point of Care 314 mg/dl (65-105)
[2024-01-28] MEDS: INSULIN GLARGINE (*BKC) 100 UNITS/ML 12 UNITS SUB-Q (20:37)
[2024-01-28 21:17] LABS: Glucose Point of Care 199 mg/dl (65-105)
[2024-01-29] VITALS (10 sets, daily range): BP systolic 142–178; BP diastolic 62–99; PULSE 73–92; RESP 16–18; TEMP 36.1–36.4; O2SAT 97–99
[2024-01-29 05:38] LABS: Basophils Percent Auto 0.2 % (0.2-1.2); Eosinophils Absolute Auto 0.1 K/mm3 (0-0.3); Eosinophils Percent Auto 0.8 % (0-4.4); Hematocrit 39.6 % (37.0-47.0); Immature Granulocyte Absolute 0.02 K/mm3 (0.00-0.031); Immature Granulocyte Percent A 0.2 % (0-0.5); Lymphocytes Absolute Auto 2.72 K/mm3 (0.9-3.2); Lymphocytes Percent Auto 26.3 % (18.3-44.2); Mean Corpuscular HGB Conc 32.8 g/dl (32-36); Mean Corpuscular Hemoglobin 27.1 pg (26-34); Mean Corpuscular Volume 82.7 fl (80-100); Mean Platelet Volume 10.6 fl (7.4-10.4); Monocytes Absolute Auto 1.1 K/mm3 (0.1-0.6); Monocytes Percent Auto 10.6 % (2.6-8.5); Neutrophils Absolute Auto 6.4 K/mm3 (1.3-6.7); Neutrophils Percent Auto 61.9 % (45.5-73.1); Platelet Count Result 588 k/mm3 (150-375); Red Blood Count 4.79 M/mm3 (4.2-5.4); Red Cell Distribution Width 14.6 % (11.5-14.5); White Blood Count 10.4 K/mm3 (4.5-10.0)
[2024-01-29 05:47] LABS: Alanine Aminotransferase 19 U/L (6-35); Albumin Level 3.9 g/dL (3.5-5.1); Alkaline Phosphatase 206 U/L (38-126); Anion Gap 4 mmol/L (4-12); Aspartate Amino Transferase 29 U/L (14-36); Bilirubin,Total 0.5 mg/dL (0.2-1.3); Blood Urea Nitrogen 22 mg/dL (7-17); Calcium 9.5 mg/dL (8.4-10.2); Carbon Dioxide 35 mmol/L (22-30); Chloride 95 mmol/L (98-107); Estimated CRCL calculation 46 ml/min; Estimated Glomerular Filt Rate > 60; Glucose 215 mg/dL (65-110); Magnesium 1.9 mg/dL (1.6-2.3); Potassium 3.3 mmol/L (3.4-5.0); Sodium 134 mmol/L (137-145)
[2024-01-29 08:01] LABS: Glucose Point of Care 185 mg/dl (65-105)
[2024-01-29] MEDS: ACIDOPHILUS/BULGARICUS CHEWABLE TABLET 1 TABLET PO ×4 (08:28→20:55)
[2024-01-29] MEDS: hydroCHLOROthiazide 25 MG TABLET PO (08:28)
[2024-01-29] MEDS: ASPIRIN 81 MG CHEWABLE TABLET PO (08:28)
[2024-01-29] MEDS: amLODIPine BESYLATE 5 MG TABLET 10 MG PO (08:28)
[2024-01-29] MEDS: OLMESARTAN MEDOXOMIL 20 MG TABLET PO ×2 (08:28→17:09)
[2024-01-29] MEDS: INSULIN ASPART (*BKC) 100 UNITS/ML SUB-Q ×4 (08:31→16:58)
[2024-01-29] MEDS: ceFAZolin 2 GM/D5W 50 ML 2 GM/50 ML BAG IVPB ×2 (08:36→16:56)
[2024-01-29 11:56] LABS: Glucose Point of Care 272 mg/dl (65-105)
[2024-01-29] MEDS: POTASSIUM CHLORIDE 20 MEQ ER TABLET 40 MEQ PO (12:13)
--- NOTE | 2024-01-29 12:25 | PM.IMPN ---
Progress Note: A&P Assessment and Plan (1) Asymptomatic hypertensive urgency: Code(s): I16.0 - Hypertensive urgency Status: Acute (2) Abscess of right leg: Code(s): L02.415 - Cutaneous abscess of right lower limb Status: Acute (3) Hyperglycemia: Code(s): R73.9 - Hyperglycemia, unspecified Status: Acute Plan This is a 63-year-old female with past medical history significant for recently diagnosed hypertension came as a direct admission from outside facility she presented there after a home blood pressure reading was systolic blood pressure of 230. Patient denies any lightheadedness, dizziness, syncope or near syncope, no headaches no blurry vision no shortness of breath no chest pain no PND no orthopnea no abdominal pain no nausea no vomiting no leg swelling no pedal swelling no ankle swelling. #Asymptomatic hypertensive urgency: Patient received olmesartan 20 mg daily p.o. increased to 20 mg b.i.d. Add hydrochlorothiazide 25 mg daily p.o., amlodipine 10 mg daily p.o. Hydralazine IV p.r.n. with parameters renal Doppler with no evidence of renal artery stenosis Echo with EF 50-55% moderate concentric left ventricle wall thickness grade 1 diastolic dysfunction. No significant valvar disease. 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 Denies any pain. No shortness of breath or chest pain. Review of Systems Review of Systems: All systems reviewed & are unremarkable except as noted in HPI and below Exam Narrative: GENERAL: Pleasant, in no acute distress. Well-nourished. - EYES: EOMI. Anicteric. - HENT: Moist mucous membranes. - LUNGS: Clear to auscultation bilaterally, no wheezing, rhonchi, or rales. - CARDIOVASCULAR: Regular rate and rhythm. No murmur. No JVD. - ABDOMEN: Soft, non-tender and non-distended. No palpable masses. - EXTREMITIES: No edema. Peripheral pulses 2+. Non-tender. - NEUROLOGIC: No focal neurological deficits. CN II-XII grossly intact. - PSYCHIATRIC: Awake, Alert and oriented x 3. Appropriate mood and affect. - SKIN: Right lower extremity with wound VAC in place - LYMPH: No cervical lymphadenopathy. Objective Data Vital Signs Vital Signs: Vital Signs - 24 hr 01/28/24 16:00 01/28/24 16:05 01/28/24 20:18 Temperature 98 F 97.1 F L Pulse Rate 89 87 89 Respiratory Rate 16 16 Blood Pressure 180/91 H 151/69 H Pulse Oximetry 99 99 Oxygen Delivery 01/28/24 20:00 01/28/24 20:00 01/29/24 00:00 Temperature 97 F L Pulse Rate 79 89 81 Respiratory Rate 16 16 Blood Pressure 168/73 H Pulse Oximetry 99 99 Oxygen Delivery Room Air 01/29/24 00:00 01/29/24 04:00 01/29/24 05:09 Temperature 97.6 F Pulse Rate 81 73 74 Respiratory Rate 18 Blood Pressure 149/72 H Pulse Oximetry 99 Oxygen Delivery 01/29/24 08:04 01/29/24 12:10 Temperature 97.0 F L 97.1 F L Pulse Rate 83 81 Respiratory Rate 18 17 Blood Pressure 178/99 H 168/80 H Pulse Oximetry 97 99 Oxygen Delivery Intake/Output Intake/Output: Intake & Output 01/26/24 01/27/24 01/28/24 01/29/24 23:59 23:59 23:59 23:59 Intake Total 940 1740 630 Output Total 1470 1100 700
[2024-01-29 16:47] LABS: Glucose Point of Care 165 mg/dl (65-105)
[2024-01-29] MEDS: VANCOMYCIN 1,000 MG/NS 250 ML 1,000 MG/250 ML BAG 250 MG IVPB (17:43)
[2024-01-29] MEDS: INSULIN GLARGINE (*BKC) 100 UNITS/ML 16 UNITS SUB-Q (20:55)
[2024-01-29 21:14] LABS: Glucose Point of Care 177 mg/dl (65-105)
[2024-01-30] VITALS: BP 139/69; PULSE 72; PULSE 84; RESP 16; TEMP 36.6; O2SAT 99
[2024-01-30] MEDS: ceFAZolin 2 GM/D5W 50 ML 2 GM/50 ML BAG IVPB ×2 (00:35→08:44)
[2024-01-30 04:00] VITALS: PULSE 74
[2024-01-30 04:50] VITALS: BP 148/76; PULSE 80; RESP 14; TEMP 36.6; O2SAT 98
[2024-01-30 05:54] LABS: Alanine Aminotransferase 15 U/L (6-35); Albumin Level 3.8 g/dL (3.5-5.1); Alkaline Phosphatase 185 U/L (38-126); Anion Gap 6 mmol/L (4-12); Aspartate Amino Transferase 27 U/L (14-36); Bilirubin,Total 0.5 mg/dL (0.2-1.3); Blood Urea Nitrogen 26 mg/dL (7-17); Calcium 9.3 mg/dL (8.4-10.2); Carbon Dioxide 31 mmol/L (22-30); Chloride 98 mmol/L (98-107); Estimated CRCL calculation 52 ml/min; Estimated Glomerular Filt Rate > 60; Glucose 147 mg/dL (65-110); Magnesium 1.9 mg/dL (1.6-2.3); Potassium 3.3 mmol/L (3.4-5.0); Sodium 135 mmol/L (137-145)
[2024-01-30 06:06] LABS: Basophils Absolute Auto 0.1 K/mm3 (0.0-0.1); Basophils Percent Auto 0.5 % (0.2-1.2); Eosinophils Absolute Auto 0.1 K/mm3 (0-0.3); Eosinophils Percent Auto 1.1 % (0-4.4); Hematocrit 39.7 % (37.0-47.0); Hemoglobin 12.8 g/dL (12.0-15.0); Immature Granulocyte Absolute 0.03 K/mm3 (0.00-0.031); Immature Granulocyte Percent A 0.3 % (0-0.5); Lymphocytes Absolute Auto 2.41 K/mm3 (0.9-3.2); Mean Corpuscular HGB Conc 32.2 g/dl (32-36); Mean Corpuscular Volume 83.8 fl (80-100); Mean Platelet Volume 10.8 fl (7.4-10.4); Monocytes Absolute Auto 1.1 K/mm3 (0.1-0.6); Neutrophils Percent Auto 62.1 % (45.5-73.1); Platelet Count Result 602 k/mm3 (150-375); Red Blood Count 4.74 M/mm3 (4.2-5.4); Red Cell Distribution Width 14.7 % (11.5-14.5); White Blood Count 9.7 K/mm3 (4.5-10.0)
[2024-01-30 08:00] VITALS: BP 165/79; PULSE 83; RESP 18; TEMP 36.7; O2SAT 99
[2024-01-30 08:38] LABS: Glucose Point of Care 166 mg/dl (65-105)
[2024-01-30] MEDS: ACIDOPHILUS/BULGARICUS CHEWABLE TABLET 1 TABLET PO ×4 (08:43→21:25)
[2024-01-30] MEDS: OLMESARTAN MEDOXOMIL 20 MG TABLET PO ×2 (08:43→17:27)
[2024-01-30] MEDS: ASPIRIN 81 MG CHEWABLE TABLET PO (08:43)
[2024-01-30] MEDS: hydroCHLOROthiazide 25 MG TABLET PO (08:44)
[2024-01-30] MEDS: amLODIPine BESYLATE 5 MG TABLET 10 MG PO (08:44)
[2024-01-30] MEDS: INSULIN ASPART (*BKC) 100 UNITS/ML SUB-Q ×4 (08:49→17:28)
[2024-01-30 11:57] LABS: Glucose Point of Care 224 mg/dl (65-105)
--- NOTE | 2024-01-30 12:26 | PM.IMPN ---
Progress Note: A&P Assessment and Plan (1) Asymptomatic hypertensive urgency: Code(s): I16.0 - Hypertensive urgency Status: Acute (2) Abscess of right leg: Code(s): L02.415 - Cutaneous abscess of right lower limb Status: Acute (3) Hyperglycemia: Code(s): R73.9 - Hyperglycemia, unspecified Status: Acute Plan This is a 63-year-old female with past medical history significant for recently diagnosed hypertension came as a direct admission from outside facility she presented there after a home blood pressure reading was systolic blood pressure of 230. Patient denies any lightheadedness, dizziness, syncope or near syncope, no headaches no blurry vision no shortness of breath no chest pain no PND no orthopnea no abdominal pain no nausea no vomiting no leg swelling no pedal swelling no ankle swelling. #Asymptomatic hypertensive urgency: Patient received olmesartan 20 mg daily p.o. increased to 20 mg b.i.d. Add hydrochlorothiazide 25 mg daily p.o., amlodipine 10 mg daily p.o. Hydralazine IV p.r.n. with parameters renal Doppler with no evidence of renal artery stenosis Echo with EF 50-55% moderate concentric left ventricle wall thickness grade 1 diastolic dysfunction. No significant valvar disease. 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 Will switch to oral antibiotics Bactrim Subjective Date/time seen: 01/30/24 12:26 Interval history: No overnight events. Had some loose stool. No fever chills. Review of Systems Review of Systems: All systems reviewed & are unremarkable except as noted in HPI and below Exam Narrative: GENERAL: Pleasant, in no acute distress. Well-nourished. - EYES: EOMI. Anicteric. - HENT: Moist mucous membranes. - LUNGS: Clear to auscultation bilaterally, no wheezing, rhonchi, or rales. - CARDIOVASCULAR: Regular rate and rhythm. No murmur. No JVD. - ABDOMEN: Soft, non-tender and non-distended. No palpable masses. - EXTREMITIES: No edema. Peripheral pulses 2+. Non-tender. - NEUROLOGIC: No focal neurological deficits. CN II-XII grossly intact. - PSYCHIATRIC: Awake, Alert and oriented x 3. Appropriate mood and affect. - SKIN: Right lower extremity with wound VAC in place - LYMPH: No cervical lymphadenopathy. Objective Data Vital Signs Vital Signs: Vital Signs - 24 hr 01/29/24 16:08 01/29/24 16:00 01/29/24 20:00 Temperature 97.0 F L Pulse Rate 92 91 73 Respiratory Rate 16 Blood Pressure 166/77 H Pulse Oximetry 99 Oxygen Delivery 01/29/24 20:00 01/29/24 20:00 01/30/24 00:00 Temperature 97 F L Pulse Rate 92 81 72 Respiratory Rate 16 18 Blood Pressure 142/62 H Pulse Oximetry 99 98 Oxygen Delivery Room Air 01/30/24 00:00 01/30/24 04:00 01/30/24 04:50 Temperature 97.8 F 97.8 F Pulse Rate 84 74 80 Respiratory Rate 16 14 Blood Pressure 139/69 148/76 H Pulse Oximetry 99 98 Oxygen Delivery 01/30/24 08:00 01/30/24 08:45 Temperature 98.0 F Pulse Rate 83 Respiratory Rate 18 Blood Pressure 165/79 H Pulse Oximetry 99 Oxygen Delivery Room Air Intake/Output Intake/Output: Intake & Output 01/27/24 01/28/24 01/29/24 01/30/24 23:59 23:59 23:59 23:59 Intake Total 940 1989 1360 440 Output Total 1
[2024-01-30 15:18] VITALS: BP 157/70; PULSE 84; RESP 16; TEMP 36.1; O2SAT 99
[2024-01-30 16:48] LABS: Glucose Point of Care 145 mg/dl (65-105)
[2024-01-30 20:00] VITALS: BP 184/89; PULSE 80; RESP 20; TEMP 36.7; O2SAT 96
[2024-01-30 20:13] LABS: Glucose Point of Care 179 mg/dl (65-105)
[2024-01-30] MEDS: INSULIN GLARGINE (*BKC) 100 UNITS/ML 16 UNITS SUB-Q (21:24)
[2024-01-30] MEDS: SULFAMETHOXAZOLE/TRIMETHOPRIM 800/160 MG DS TABLET 1 TAB PO (21:25)
[2024-01-31] VITALS (7 sets, daily range): BP systolic 144–175; BP diastolic 68–78; PULSE 71–84; RESP 16–20; TEMP 35.6–37.1; O2SAT 98–100; BMI 21.1
[2024-01-31 05:23] LABS: Basophils Percent Auto 0.5 % (0.2-1.2); Eosinophils Absolute Auto 0.1 K/mm3 (0-0.3); Eosinophils Percent Auto 1.2 % (0-4.4); Hematocrit 39.4 % (37.0-47.0); Hemoglobin 12.7 g/dL (12.0-15.0); Immature Granulocyte Absolute 0.03 K/mm3 (0.00-0.031); Immature Granulocyte Percent A 0.3 % (0-0.5); Lymphocytes Absolute Auto 2.09 K/mm3 (0.9-3.2); Lymphocytes Percent Auto 24.1 % (18.3-44.2); Mean Corpuscular HGB Conc 32.2 g/dl (32-36); Mean Corpuscular Hemoglobin 26.8 pg (26-34); Mean Corpuscular Volume 83.3 fl (80-100); Mean Platelet Volume 10.5 fl (7.4-10.4); Monocytes Percent Auto 11.9 % (2.6-8.5); Neutrophils Absolute Auto 5.4 K/mm3 (1.3-6.7); Platelet Count Result 568 k/mm3 (150-375); Red Blood Count 4.73 M/mm3 (4.2-5.4); Red Cell Distribution Width 14.7 % (11.5-14.5); White Blood Count 8.7 K/mm3 (4.5-10.0)
[2024-01-31 05:36] LABS: Alanine Aminotransferase 14 U/L (6-35); Albumin Level 3.7 g/dL (3.5-5.1); Alkaline Phosphatase 168 U/L (38-126); Anion Gap 9 mmol/L (4-12); Aspartate Amino Transferase 28 U/L (14-36); Bilirubin,Total 0.5 mg/dL (0.2-1.3); Blood Urea Nitrogen 21 mg/dL (7-17); Calcium 9.1 mg/dL (8.4-10.2); Carbon Dioxide 34 mmol/L (22-30); Chloride 94 mmol/L (98-107); Estimated CRCL calculation 42 ml/min; Estimated Glomerular Filt Rate 56; Glucose 102 mg/dL (65-110); Potassium 3.3 mmol/L (3.4-5.0); Sodium 137 mmol/L (137-145)
[2024-01-31 08:23] LABS: Glucose Point of Care 91 mg/dl (65-105)
[2024-01-31] MEDS: SULFAMETHOXAZOLE/TRIMETHOPRIM 800/160 MG DS TABLET 1 TAB PO ×2 (08:40→20:48)
[2024-01-31] MEDS: ASPIRIN 81 MG CHEWABLE TABLET PO (08:40)
[2024-01-31] MEDS: hydroCHLOROthiazide 25 MG TABLET PO (08:40)
[2024-01-31] MEDS: ACIDOPHILUS/BULGARICUS CHEWABLE TABLET 1 TABLET PO ×4 (08:40→20:48)
[2024-01-31] MEDS: amLODIPine BESYLATE 5 MG TABLET 10 MG PO (08:40)
[2024-01-31] MEDS: OLMESARTAN MEDOXOMIL 20 MG TABLET PO ×2 (08:40→17:42)
[2024-01-31] MEDS: INSULIN ASPART (*BKC) 100 UNITS/ML SUB-Q ×3 (08:42→17:43)
[2024-01-31 12:04] LABS: Glucose Point of Care 95 mg/dl (65-105)
--- NOTE | 2024-01-31 13:21 | PM.IMPN ---
Progress Note: A&P Assessment and Plan (1) Asymptomatic hypertensive urgency: Code(s): I16.0 - Hypertensive urgency Status: Acute (2) Abscess of right leg: Code(s): L02.415 - Cutaneous abscess of right lower limb Status: Acute (3) Hyperglycemia: Code(s): R73.9 - Hyperglycemia, unspecified Status: Acute Plan This is a 63-year-old female with past medical history significant for recently diagnosed hypertension came as a direct admission from outside facility she presented there after a home blood pressure reading was systolic blood pressure of 230. Patient denies any lightheadedness, dizziness, syncope or near syncope, no headaches no blurry vision no shortness of breath no chest pain no PND no orthopnea no abdominal pain no nausea no vomiting no leg swelling no pedal swelling no ankle swelling. #Asymptomatic hypertensive urgency: Patient received olmesartan 20 mg daily p.o. increased to 20 mg b.i.d. Add hydrochlorothiazide 25 mg daily p.o., amlodipine 10 mg daily p.o. Hydralazine IV p.r.n. with parameters renal Doppler with no evidence of renal artery stenosis Echo with EF 50-55% moderate concentric left ventricle wall thickness grade 1 diastolic dysfunction. No significant valvar disease. 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 Will switch to oral antibiotics Bactrim Subjective Date/time seen: 01/31/24 13:21 Interval history: No overnight events awaiting approval of wound VAC is afebrile. Labs reviewed. Review of Systems Review of Systems: All systems reviewed & are unremarkable except as noted in HPI and below Exam Narrative: GENERAL: Pleasant, in no acute distress. Well-nourished. - EYES: EOMI. Anicteric. - HENT: Moist mucous membranes. - LUNGS: Clear to auscultation bilaterally, no wheezing, rhonchi, or rales. - CARDIOVASCULAR: Regular rate and rhythm. No murmur. No JVD. - ABDOMEN: Soft, non-tender and non-distended. No palpable masses. - EXTREMITIES: No edema. Peripheral pulses 2+. Non-tender. - NEUROLOGIC: No focal neurological deficits. CN II-XII grossly intact. - PSYCHIATRIC: Awake, Alert and oriented x 3. Appropriate mood and affect. - SKIN: Right lower extremity with wound VAC in place - LYMPH: No cervical lymphadenopathy. Objective Data Vital Signs Vital Signs: Vital Signs - 24 hr 01/30/24 15:18 01/30/24 20:00 01/30/24 20:00 Temperature 97.0 F L 98.0 F Pulse Rate 84 80 80 Respiratory Rate 16 20 20 Blood Pressure 157/70 H 184/89 H Pulse Oximetry 99 96 96 Oxygen Delivery Room Air 01/31/24 00:00 01/31/24 04:00 01/31/24 08:48 Temperature 97.9 F 98.2 F 97.9 F Pulse Rate 81 71 80 Respiratory Rate 18 20 16 Blood Pressure 144/71 H 151/74 H 175/75 H Pulse Oximetry 99 98 100 Oxygen Delivery 01/31/24 08:40 Temperature Pulse Rate Respiratory Rate Blood Pressure Pulse Oximetry 100 Oxygen Delivery Room Air Intake/Output Intake/Output: Intake & Output 01/28/24 01/29/24 01/30/24 01/31/24 23:59 23:59 23:59 23:59 Intake Total 1989 1360 1220 840 Output Total 1099 1800 1600 500 Balance 978 -826 -947 340 Meds/Results Medications: Active Medications Generic Name Dose Route Start Last Admin Trade Name Freq
[2024-01-31 17:25] LABS: Glucose Point of Care 165 mg/dl (65-105)
[2024-01-31] MEDS: POTASSIUM CHLORIDE 20 MEQ ER TABLET 40 MEQ PO (17:42)
[2024-01-31 20:35] LABS: Glucose Point of Care 185 mg/dl (65-105)
[2024-01-31] MEDS: INSULIN GLARGINE (*BKC) 100 UNITS/ML 14 UNITS SUB-Q (20:47)
[2024-02-01 05:59] LABS: Basophils Absolute Auto 0.1 K/mm3 (0.0-0.1); Basophils Percent Auto 0.6 % (0.2-1.2); Eosinophils Absolute Auto 0.1 K/mm3 (0-0.3); Eosinophils Percent Auto 1.3 % (0-4.4); Hematocrit 39.4 % (37.0-47.0); Hemoglobin 12.6 g/dL (12.0-15.0); Immature Granulocyte Absolute 0.02 K/mm3 (0.00-0.031); Immature Granulocyte Percent A 0.2 % (0-0.5); Lymphocytes Absolute Auto 1.91 K/mm3 (0.9-3.2); Lymphocytes Percent Auto 22.3 % (18.3-44.2); Mean Corpuscular Hemoglobin 26.5 pg (26-34); Mean Corpuscular Volume 82.9 fl (80-100); Mean Platelet Volume 10.5 fl (7.4-10.4); Monocytes Percent Auto 11.8 % (2.6-8.5); Neutrophils Absolute Auto 5.5 K/mm3 (1.3-6.7); Neutrophils Percent Auto 63.8 % (45.5-73.1); Platelet Count Result 591 k/mm3 (150-375); Red Blood Count 4.75 M/mm3 (4.2-5.4); Red Cell Distribution Width 14.9 % (11.5-14.5); White Blood Count 8.6 K/mm3 (4.5-10.0)
[2024-02-01 06:00] VITALS: BP 142/78; PULSE 71; RESP 18; TEMP 35.6; O2SAT 96
[2024-02-01 06:18] LABS: Alanine Aminotransferase 15 U/L (6-35); Albumin Level 3.9 g/dL (3.5-5.1); Alkaline Phosphatase 164 U/L (38-126); Anion Gap 4 mmol/L (4-12); Aspartate Amino Transferase 35 U/L (14-36); Bilirubin,Total 0.6 mg/dL (0.2-1.3); Blood Urea Nitrogen 22 mg/dL (7-17); Calcium 9.3 mg/dL (8.4-10.2); Carbon Dioxide 33 mmol/L (22-30); Chloride 99 mmol/L (98-107); Estimated CRCL calculation 38 ml/min; Estimated Glomerular Filt Rate 50; Glucose 113 mg/dL (65-110); Magnesium 2.1 mg/dL (1.6-2.3); Potassium 4.1 mmol/L (3.4-5.0); Sodium 136 mmol/L (137-145)
[2024-02-01 08:08] LABS: Glucose Point of Care 142 mg/dl (65-105)
[2024-02-01] MEDS: OLMESARTAN MEDOXOMIL 20 MG TABLET PO (09:06)
[2024-02-01] MEDS: ACIDOPHILUS/BULGARICUS CHEWABLE TABLET 1 TABLET PO ×2 (09:06→12:42)
[2024-02-01] MEDS: hydroCHLOROthiazide 25 MG TABLET PO (09:06)
[2024-02-01] MEDS: ASPIRIN 81 MG CHEWABLE TABLET PO (09:06)
[2024-02-01] MEDS: amLODIPine BESYLATE 5 MG TABLET 10 MG PO (09:07)
[2024-02-01] MEDS: SULFAMETHOXAZOLE/TRIMETHOPRIM 800/160 MG DS TABLET 1 TAB PO (09:07)
[2024-02-01] MEDS: INSULIN ASPART (*BKC) 100 UNITS/ML SUB-Q ×2 (09:09→12:42)
--- NOTE | 2024-02-01 11:07 | PM.DS ---
DS: Admitting Diagnosis Discharge Date 02/01/2024 Admitting Diagnosis Hypertension Right leg infection DS: Discharge Diagnosis Discharge Diagnosis (1) Asymptomatic hypertensive urgency: Code(s): I16.0 - Hypertensive urgency Status: Acute (2) Abscess of right leg: Code(s): L02.415 - Cutaneous abscess of right lower limb Status: Acute (3) Hyperglycemia: Code(s): R73.9 - Hyperglycemia, unspecified Status: Acute DS: Summary Hospital Course Hospital Course: This is a 63-year-old female with past medical history significant for recently diagnosed hypertension came as a direct admission from outside facility she presented there after a home blood pressure reading was systolic blood pressure of 230. Patient denies any lightheadedness, dizziness, syncope or near syncope, no headaches no blurry vision no shortness of breath no chest pain no PND no orthopnea no abdominal pain no nausea no vomiting no leg swelling no pedal swelling no ankle swelling. #Asymptomatic hypertensive urgency: Patient received olmesartan 20 mg daily p.o. increased to 20 mg b.i.d. Add hydrochlorothiazide 25 mg daily p.o., amlodipine 10 mg daily p.o. Hydralazine IV p.r.n. with parameters renal Doppler with no evidence of renal artery stenosis Echo with EF 50-55% moderate concentric left ventricle wall thickness grade 1 diastolic dysfunction. No significant valvar disease. TSH normal Blood pressure much improved at discharge # new diagnosis of Diabetes fasting glucose 239 Unknown history of diabetes A1c 11.2 sw insulin ss Basal bolus insulin regimen will be started rn diabetes educator consultation Basal bolus insulin at discharge # Thrombocythemia and anemia plt 597 Hemoglobin 11.8, unknown baseline No obvious bleeding Follow-up stool guaiac iron panel consult bottom buffer. Follow-up with Hematology as outpatient # Cellulitis right lower extremity and nonhealing ulcer Patient has ulcer about 1 month, and patient has swelling, tender and erythema around ulcer Patient was prescribed clindamycin on Wednesday per PCP active drainage from wound Wound Care recommend to consult General surgery for evaluation Status post bedside debridement Start vancomycin and Ancef 2 g q.8 hours IV, discontinue clindamycin. Will switch to oral antibiotics Bactrim On wound VAC which has been approved. Dressing changes as ordered Wednesday Bactrim for 5 more days Time Spent with Patient Time attestation: Total time spent providing and/or coordinating discharge services: 35 minutes Exam Narrative: GENERAL: Pleasant, in no acute distress. Well-nourished. - EYES: EOMI. Anicteric. - HENT: Moist mucous membranes. - LUNGS: Clear to auscultation bilaterally, no wheezing, rhonchi, or rales. - CARDIOVASCULAR: Regular rate and rhythm. No murmur. No JVD. - ABDOMEN: Soft, non-tender and non-distended. No palpable masses. - EXTREMITIES: No edema. Peripheral pulses 2+. Non-tender. - NEUROLOGIC: No focal neurological deficits. CN II-XII grossly intact. - PSYCHIATRIC: Awake, Alert and oriented x 3. Appropriate mood and affect. - SKIN: Right lower extremity with wound VAC in place - LYMPH: No cervical lymphadenopathy. DS: Data Data Completed and Pending Completed studies during hospitalization: Exam Type: CA echo doppler color flow Study Info Indications I11.0 - Hypertensive heart disease with heart failure Complete two-dimensional, color flow and Doppler transthoracic echocardiogram is performed. Summary 1. Left ventricular chamber dimension is normal. 2. Left ventricular systolic function is at lower limits of normal, estimated at 50-55%. 3. There is moderate concentric increased left ventricular wall thickness. 4. The left ventricular diastolic function is grade I diastolic dysfunction. 5. Right ventricular systolic function is normal. 6. L
[2024-02-01 12:15] LABS: Glucose Point of Care 113 mg/dl (65-105)
--- NOTE | 2024-02-01 13:14 | PM.PNGS ---
Progress Note: A&P Assessment and Plan (1) Abscess of right leg: Code(s): L02.415 - Cutaneous abscess of right lower limb Status: Acute Assessment and Plan: Healing well following I&D and debridement of right lower leg wound. Continue wound vac therapy on discharge. Home health has been set up and home wound vac was approved. Okay to discharge her home with HH from a surgical standpoint. Will schedule her for a follow-up in the wound clinic in [address] Andrade. Plan I have discussed the patient's case and plan of care with Dr. Andrade. Subjective Subjective Date/Time Seen: 02/01/24 13:14 Post Op day: 5 (Incision and drainage right lower leg abscess, excisional debridement necrotic right lower leg wound including skin and subcutaneous tissue measuring 4 cm x 2 cm) Patient reports: no new complaints and feels better Interval history: No acute issues. Waiting for home wound vac approval, which was approved this morning per nursing. Wound vac changed yesterday and per wound care nurses, the wound appeared stable and healthy and they had no concerns. Exam Const: General: comfortable and no acute distress Extrem: Other: Right lateral lower leg wound vac in place with dressing dry and intact, functioning well Objective Data Vital Signs Vital Signs: Vital Signs - 24 hr 01/31/24 13:47 01/31/24 20:00 01/31/24 20:00 Temperature 98.8 F 96.0 F L Pulse Rate 84 80 Respiratory Rate 18 20 Blood Pressure 150/68 H 158/69 H Pulse Oximetry 99 98 Oxygen Delivery Room Air 01/31/24 23:14 02/01/24 06:00 Temperature 96.3 F L 96.1 F L Pulse Rate 79 71 Respiratory Rate 20 18 Blood Pressure 149/78 H 142/78 H Pulse Oximetry 100 96 Oxygen Delivery Intake/Output Intake/Output: Intake & Output 01/29/24 01/30/24 01/31/24 02/01/24 23:59 23:59 23:59 23:59 Intake Total 1360 1220 1700 960 Output Total 1800 1600 500 800 Balance -440 -380 1200 160 Meds/Results Medications: Active Medications Generic Name Dose Route Start Last Admin Trade Name Freq PRN Reason Stop Dose Admin Acetaminophen 1,000 mg 01/26/24 23:35 Acetaminophen 500 Mg Tablet PO Q6H PRN Pain Al Hydrox/Mg Hydrox/Simethicone 30 ml 01/26/24 23:35 Mag Hydrox/Al Hydrox/Simeth 30 Ml Udc PO QID PRN Dyspepsia Amlodipine Besylate 10 mg 01/27/24 10:50 02/01/24 09:07 Amlodipine Besylate 5 Mg Tablet PO 10 mg QAM RACQUEL Administration Aspirin 81 mg 01/29/24 08:00 02/01/24 09:06 Aspirin 81 Mg Chewable Tablet PO 81 mg DAILY@0800 RACQUEL Administration Dextrose 12.5 gm 01/27/24 10:51 Dextrose 50% 25 Gm/50 Ml Syringe IV PUSH PRN PRN Hypoglycemia Protocol Dextrose 12.5 gm 01/28/24 15:05 Dextrose 50% 25 Gm/50 Ml Syringe IV PUSH PRN PRN Hypoglycemia Protocol Dextrose 12.5 gm 01/28/24 15:06 Dextrose 50% 25 Gm/50 Ml Syringe IV PUSH PRN PRN Hypoglycemia Protocol Glucagon 1 mg 01/27/24 10:51 Glucagon For Inj 1 Mg Vial IM PRN PRN Hypoglycemia Protocol Glucagon 1 mg 01/28/24 15:05 Glucagon For Inj 1 Mg Vial IM PRN PRN Hypoglycemia Protocol Glucagon 1 mg 01/28/24 15:06 Glucagon For Inj 1 Mg Vial IM PRN PRN Hypoglycemia Protocol Glucose 15 gm 01/27/24 10:51 Glucose Oral Gel 15 Gm Of Glucse In 37.5 Gm Tube PO PRN PRN Hypoglycemia Protocol Glucose 15 gm 01/28/24 15:05 Glucose Oral Gel 15 Gm Of Glucse In 37.5 Gm Tube PO PRN PRN Hypoglycemia Protocol Glucose 15 gm 01/28/24 15:06 Glucose Oral Gel 15 Gm Of Glucse In 37.5 Gm Tube PO PRN PRN Hypoglycemia Protocol Hydrochlorothiazide 25 mg 01/27/24 10:50 02/01/24 09:06 Hydrochlorothiazide 25 Mg Tablet PO 25 mg QAM RACQUEL Administration Dextrose 1,000 mls @ 100 mls/hr 01/27/24 10:51 Dextrose 5% 1,000 Ml IVPB PRN PRN Hypoglycemia Protoco
[2024-02-04 17:54] LABS: Block/Specimen ID NG; Clinical Indication NG; JAK2 V617F Mutation NOT DETECTED (NOT DETECTED); Specimen Source BLOOD
[2024-02-05 20:48] LABS: PRA 1.69 ng/mL/h (0.25-5.82)
== END 2024-02-01 13:59 | disposition home health service (06) | DRG 572 ==
LOC: ANHIMU 01-27 13:52 → ANH3MED 01-27 21:47
PROVIDERS: Hospitalist; Nurse Practitioner Family; Admitting Provider Internal Medicine; Visit Provider Internal Medicine
DX: L02.415 Cutaneous abscess of right lower limb (principal); I16.0 Hypertensive urgency; I10 Essential (primary) hypertension; D75.839 Thrombocytosis, unspecified; D64.9 Anemia, unspecified; E11.65 Type 2 diabetes mellitus with hyperglycemia; Z88.0 Allergy status to penicillin
CPT/HCPCS: 36415; 80048; 80053; 81001; 81270; 82088; 82274; 82565; 82607; 82728; 82746; 82948; 83036; 83540; 83550; 83735; 84100; 84244; 84443; 85025; 85046; 85652; 86140; 93005; 93306; 93976; A9270; G0378; G0379; J0690; J1815; J3370

== ENCOUNTER 2024-02-21 10:54 | Outpatient (RCR) | payer OTHER, SELFPAY ==
[2024-02-21 11:45] VITALS: BMI 23.1
== END 2024-04-05 15:10 | disposition home or self-care (01) ==
LOC: ANHWOC 10:54
PROVIDERS: PCP Registered Nurse; Visit Provider Surgery
DX: L02.415 Cutaneous abscess of right lower limb (principal); Z48.00 Encounter for change or removal of nonsurgical wound dressing
CPT/HCPCS: 99214; G0463

== ENCOUNTER 2024-03-06 14:55 | Outpatient (CLI) | payer OTHER, SELFPAY ==
[2024-03-06 15:12] LABS: Basophils Percent Auto 0.4 % (0.2-1.2); Eosinophils Absolute Auto 0.1 K/mm3 (0-0.3); Eosinophils Percent Auto 0.7 % (0-4.4); Hematocrit 39.8 % (37.0-47.0); Immature Granulocyte Absolute 0.02 K/mm3 (0.00-0.031); Immature Granulocyte Percent A 0.2 % (0-0.5); Lymphocytes Absolute Auto 2.01 K/mm3 (0.9-3.2); Lymphocytes Percent Auto 20.8 % (18.3-44.2); Mean Corpuscular HGB Conc 32.7 g/dl (32-36); Mean Corpuscular Hemoglobin 27.1 pg (26-34); Mean Corpuscular Volume 83.1 fl (80-100); Mean Platelet Volume 10.1 fl (7.4-10.4); Monocytes Absolute Auto 0.8 K/mm3 (0.1-0.6); Monocytes Percent Auto 7.9 % (2.6-8.5); Neutrophils Absolute Auto 6.8 K/mm3 (1.3-6.7); Platelet Count Result 519 k/mm3 (150-375); Red Blood Count 4.79 M/mm3 (4.2-5.4); Red Cell Distribution Width 15.4 % (11.5-14.5); White Blood Count 9.7 K/mm3 (4.5-10.0)
[2024-03-06 16:23] LABS: Iron 92 ug/dL (37-170)
[2024-03-06 16:27] LABS: Alanine Aminotransferase 115 U/L (6-35); Albumin Level 4.9 g/dL (3.5-5.1); Alkaline Phosphatase 187 U/L (38-126); Anion Gap 9 mmol/L (4-12); Aspartate Amino Transferase 78 U/L (14-36); Bilirubin,Total 0.4 mg/dL (0.2-1.3); Blood Urea Nitrogen 34 mg/dL (7-17); Calcium 10.2 mg/dL (8.4-10.2); Carbon Dioxide 38 mmol/L (22-30); Chloride 93 mmol/L (98-107); Estimated Glomerular Filt Rate 45; Glucose 115 mg/dL (65-110); Potassium 3.6 mmol/L (3.4-5.0); Sodium 140 mmol/L (137-145)
[2024-03-06 16:33] LABS: Percent Iron Saturation 27 % (20-50)
== END 2024-03-06 14:56 | disposition home or self-care (01) ==
LOC: ANHLAB 14:57
PROVIDERS: PCP Registered Nurse; Visit Provider Internal Medicine Hematology & Oncology
DX: D75.839 Thrombocytosis, unspecified (principal)
CPT/HCPCS: 36415; 80053; 82607; 82728; 82746; 83540; 83550; 85025